=== PATIENT | male | born 1945 | race Caucasian/White ===

== ENCOUNTER 2020-09-12 19:50 | Emergency (ER) | payer OTHER, MEDICARE ==
--- NOTE | 2020-09-12 20:38 | EDM.PDOC ---
ED HPI GENERAL MEDICAL PROBLEM - General Chief Complaint: Cardiovascular Problem Stated Complaint: [facility] Time Seen by Provider: 09/12/20 20:08 Source of Information: Reports: Family ( + daughter) History Limitations: Reports: Altered Mental Status (Pt has dementia) - History of Present Illness INITIAL COMMENTS - FREE TEXT/NARRATIVE: Mr. Torres is a pleasantly demented 74-year-old gentleman who is now brought to the ED by EMS for hypotension. According the patient's and daughter, the patient was in a long-term care facility in the [place] area, then was admitted to the hospital in [place], then transferred to [facility] this afternoon. [facility] found the patient's BP to be depressed at 87/51, therefore transferred him here for evaluation, however, the patient's family tells me that the patient always has hypotension, apparently due to autonomic dysfunction, as he is given midodrine prior to his dialysis every Friday, Friday, and Friday. His BP is usually around 70/40. The patient's family tells me that the patient fell about 6 weeks ago, and that he had been refusing to walk. An outpatient x-ray was obtained at the [facility] yesterday, with a reading of a fracture of his right tibia being given today. Here in the ED tonight, the patient's initial BP is found to be depressed at 88/54, with bradycardia 55 bpm. He is afebrile, saturating 100% on 2 L of oxygen per nasal cannula. Without treatment, a liter BP was up to 90/59. The patient is sleeping, which his family tells me he usually does during the day. The patient's family denies that the patient has had a recent fever, chills, sore throat, ear pain, nasal or sinus congestion, cough, dyspnea, chest pain, palpitations, nausea, vomiting, constipation, diarrhea, abdominal pain, urinary symptoms, recent weight gain or weight loss, recent bloody bowel movements or black bowel movements, headaches, or rashes. The patient's PCP is Dr. Jorge L Brush the [facility] clinic, however, I believe his PCP at [facility] will be Dr. Vishal So. The family does not recall the name of his Medical Parasitologist. Right Hip Pain Score (Numeric/FACES): 5 - Related Data Allergies Allergy/AdvReac Type Severity Reaction Status Date / Time No Known Allergies Allergy Verified 09/12/20 19:54 Home Meds: Home Meds Apixaban [Eliquis] 5 mg PO BID 12/01/18 [History] Tamsulosin HCl 0.4 cap PO DAILY 12/01/18 [History] atorvaSTATin Calcium [Atorvastatin Calcium] 10 mg PO BEDTIME 12/01/18 [History] Acetaminophen [Pain Relief] 650 mg PO Q4H PRN 09/12/20 [History] Benzonatate 100 mg PO TID PRN 09/12/20 [History] Carboxymethylcellulose Sodium [Artificial Tears] 1 drop OP ASDIRECTED PRN 09/12/20 [History] Citalopram Hydrobromide [Celexa] 20 mg PO DAILY 09/12/20 [History] Docusate Sodium/Sennosides [Senna Plus] 1 each PO BID PRN 09/12/20 [History] Fish Oil/DHA/EPA [Fish Oil 1,200 MG] 2 each PO BID 09/12/20 [History] Insulin Aspart [NovoLOG] 1 unit SQ TID 09/12/20 [History] Magnesium Oxide 400 mg PO BID 09/12/20 [History] Melatonin 5 mg PO BEDTIME 09/12/20 [History] traMADol [Ultram] 50 mg PO BID 09/12/20 [History] Past Medical History HEENT History: Reports: Hard of Hearing, Impaired Vision Cardiovascular History: Reports: Afib, High Cholesterol, Hypertension Respiratory History: Reports: COPD (suspected, not PFT-tested, on 2L O2 continuously), Sleep Apnea (nightly CPAP + O2) Genitourinary History: Reports: BPH, Dialysis (Q M, W, F x 2015) Musculoskeletal History: Reports: Osteoarthritis Neurological History: Reports: Neuropathy, Diabetic Psychiatric History: Reports: Dementia, Depression Endocrine/Metabolic History: Reports: Diabetes, Type II, Hypothyroidism, Obesity/BMI 30+ Oncologic (Cancer) History: Reports: Prostate - Infectious Disease History Infectious Disease History: Reports: Chicken Pox - Past Surgical History HEENT Surgical History: Reports: Naso-Sinus Surgery (nasal polyp removal) Cardiovascular Surgical History: Reports: Vascular Surgery (RUE AVG), Other (See Below) (Coronary angiogram x 1) Male Surgical History: Reports: Prostate Biopsy Social & Family History - Tobacco Use Tobacco Use Status *Q: Never Tobacco User - Caffeine Use Caffeine Use: Reports: None - Alcohol Use Alcohol Use History: No - Recreational Drug Use Recreational Drug Use: No - Living Situation & Occupation Living situation: Reports: , Extended Care Facility ([facility]) Occupation: Retired ED ROS GENERAL - Review of Systems Review Of Systems: Comprehensive ROS is negative, except as noted in HPI. ED EXAM, GENERAL - Physical Exam Exam: See Below Exam Limited By: No Limitations General Appearance: WD/WN, No Apparent Distress (sleeping = normal for him, according to family) Eye Exam: Bilateral Eye: EOMI, Normal Inspection Ears: Normal External Exam Nose: Normal Inspection Throat/Mouth: Normal Inspection, Normal Lips, No Airway Compromise Head: Atraumatic, Normocephalic Neck: Normal Inspection, Full Range of Motion Respiratory/Chest: No Respiratory Distress, Lungs Clear, Normal Breath Sounds, No Accessory Muscle Use Cardiovascular: Normal Peripheral Pulses, No Gallop, No JVD, No Murmur, No Rub, Bradycardia Peripheral Pulses: 3+: Radial (L), Radial (R) GI/Abdominal: Normal Bowel Sounds, Soft, Non-Tender, No Organomegaly, No Distention, No Abnormal Bruit, No Mass Back Exam: Normal Inspection, Full Range of Motion, NT Extremities: Normal Inspection, Normal Range of Motion, Normal Capillary Refill, Other (AV graft palpable distal ventral upper right arm) Neurological: No Motor/Sensory Deficits, Confused (when woke = normal, per the patient's family) Skin Exam: Warm, Dry, Intact, Normal Color, No Rash Course - Vital Signs Last Recorded V/S: Last Vital Signs Temp 36.2 C 09/12/20 19:54 Pulse 55 L 09/12/20 19:54 Resp 16 09/12/20 19:54 BP 88/54 L 09/12/20 19:54 Pulse Ox 100 09/12/20 19:54 - Re-Assessments/Exams Free Text/Narrative Re-Assessment/Exam: 09/12/20 20:35 As above, the patient was admitted to [facility] this afternoon for rehab, with a finding of hypotension of 87/51, prompting him to be sent to the ED for evaluation, however, the patient's family tells me that the patient's BP always runs low, typically around 70/40, and that it was even lower while he was hospitalized in [place] recently. His hypertension is apparently due to autonomic dysfunction, as the patient receives midodrine prior to each dialysis. No concerning symptoms, such as a recent fever, cough, dyspnea, vomiting, diarrhea, or urinary symptoms. Here in the ED, the patient's initial BP was somewhat elevated for him at 88/54, then went up to 90/59, all without treatment. I explained to the patient's family that I do not see an indication for a work-up at this time, however, if he develops symptoms, to have him returned to the ED for evaluation. They are in agreement. We will return the patient to [facility]. Departure - Departure Time of Disposition: 20:38 Disposition: Home, Self-Care 01 Condition: Good Clinical Impression: Hypotension, chronic, Autonomic dysfunction Instructions: Hypotension Referrals: Vishal So MD [Primary Care Provider] - Jorge L Brush MD [Ordering Only Provider] - Forms: ED Department Discharge Additional Instructions: Mr. Torres was seen in the emergency room for low blood pressure at [facility]. Here in the ED, his initial BP was 88/54, but went up to 90/59, without treatment. We learned that Mr. Torres's blood pressure always runs low, due to autonomic dysfunction. It is treated with midodrine prior to each dialysis. As Mr. Torres is not otherwise sick, we found no indication for a work-up in the ER. If Mr. Torres develops concerning symptoms, such as a fever, cough, shortness of breath, vomiting, diarrhea, etc., please return him to the ER for reevaluation. Sepsis Event Note (ED) - Evaluation Sepsis Screening Result: No Definite Risk - Focused Exam Vital Signs: Vital Signs Temp Pulse Resp BP Pulse Ox 09/12/20 19:54 36.2 C 55 L 16 88/54 L 100
== END 2020-09-12 21:56 | disposition home or self-care (01) ==
LOC: JD.ED 19:50
DX: I10 Essential (primary) hypertension (principal); F45.8 Other somatoform disorders; I48.91 Unspecified atrial fibrillation; E78.00 Pure hypercholesterolemia, unspecified; J44.9 Chronic obstructive pulmonary disease, unspecified; N40.0 Benign prostatic hyperplasia without lower urinary tract symptoms; F03.90 Unspecified dementia, unspecified severity, without behavioral disturbance, psychotic disturbance, mood disturbance, and anxiety; E11.40 Type 2 diabetes mellitus with diabetic neuropathy, unspecified; E03.9 Hypothyroidism, unspecified; E66.9 Obesity, unspecified; Z68.30 Body mass index [BMI] 30.0-30.9, adult; Z79.01 Long term (current) use of anticoagulants; Z79.4 Long term (current) use of insulin; Z79.899 Other long term (current) drug therapy; Z99.2 Dependence on renal dialysis
CPT/HCPCS: 99283; 99285